=== PATIENT | female | born 1995 | race Caucasian/White ===

== ENCOUNTER 2018-08-02 08:37 | Emergency (ER) | payer MEDICAID, OTHER ==
[2018-08-02 09:04] VITALS: BP 116/70
--- NOTE | 2018-08-02 09:51 | UC ---
Headache HPI - HPI Summary HPI Summary: Patient presents to urgent care reporting 4 days of right-sided headache. Patient states is mostly frontal. Pressure is worse when she leaning forward. No nausea vomiting. Patient states that she changes position too quickly she feels dizzy but otherwise is fine. Patient has taken Tylenol 3 doses with little improvement. No fevers or chills. Patient denies any ear pain. Mild nasal congestion. No vision changes. States feels pressure behind right eye. No postnasal drip. Patient with decreased appetite. Patient without any documented fevers or chills. Patient states she gets a history of headaches and usually Tylenol helps but this has lasted longer. Patient does not have any allergies. Patient states her mother has frequent migraines. Patient's medications reviewed this visit. Patient states she is not . - History Of Current Complaint Chief Complaint: UCHeadache Stated Complaint: HEADACHE x4 DAYS, BILAT EYE CONCERN Time Seen by Provider: 08/02/18 09:50 Hx Obtained From: Patient Hx Last Menstrual Period: 06/2018 Pain Intensity: 5 - Allergies/Home Medications Allergies/Adverse Reactions: Allergies Allergy/AdvReac Type Severity Reaction Status Date / Time amoxicillin Allergy Severe Hives Verified 08/02/18 08:56 cefdinir [From Omnicef] Allergy Hives Verified 08/02/18 08:56 doxycycline Allergy Hives Verified 08/02/18 08:56 Home Medications: Home Medications Norelgest/Ethinyl Estr 150/35 [Xulane 150/35 PATCH] 1 dis TD WEEKLY 08/02/18 [ History Confirmed 08/02/18] PMH/Surg Hx/FS Hx/Imm Hx Previously Healthy: Yes Psychological History: Other - frequent PITT - Surgical History Surgical History: None - Family History Known Family History: Positive: Other - mom with migraines - Social History Occupation: Employed Full-time Lives: With Family Alcohol Use: Occasionally Substance Use Type: None Smoking Status (MU): Light Every Day Tobacco Smoker Type: Cigarettes Amount Used/How Often: 5-6 cigarettes daily Review of Systems All Other Systems Reviewed And Are Negative: Yes Constitutional: Positive: Fatigue Skin: Positive: Negative Eyes: Positive: Negative Physical Exam - Summary Physical Exam Summary: Vital Signs Reviewed: Yes A+Ox3, no distress Eyes: Conjunctiva Clear, ELLIE. EOM intact and full, no photophobia, no nystagmus ENT: Hearing grossly normal TM x 2 clear, + TTP right frintal area. Discomfort increases with leaning forward, turbinates mild inflammed, No PND, mmoist, uvula midline, no exudate, no erythema, no TMJ pain Neck: Positive: Supple Respiratory: Positive: No respiratory distress, No accessory muscle use + CTA throughout no w/r, Cardiovascular: RRR nl s1, s2 no m/r CBT <2 sec, no temporal artery pain abd soft + BS nt/nd no guarding, no distension Musculoskeletal Exam: FLETCHER x 4 without difficulty Strength Intact, ROM Intact Neurological: Positive: Alert, + sensation throughout Psychological: Positive: Normal Response To Family Skin: Positive: no rash, no ecchymosis Triage Information Reviewed: Yes Vital Signs: Initial Vital Signs Temp 97.2 F 08/02/18 08:57 Pulse 74 08/02/18 08:57 Resp 15 08/02/18 08:57 BP 116/70 08/02/18 08:57 Pulse Ox 100 08/02/18 08:57 Headache Course/Dx - Course Course Of Treatment: Patient presents to urgent care reporting 4 days of throat ongoing right frontal area pain. Patient states it's worse when he swallowed. Patient denies fevers or chills but states she has fatigue. Patient has taken Tylenol which hasn't helped. No vision changes nausea feeling is pressure behind her eye. No nausea vomiting. No fevers, chills, rash. Vital signs are stable, exam patient with tenderness over right frontal area. Worse when she leans forward. Patient with some mild sinus congestion. No temporal pain for intracranial process. Stated likely related to sinusitis. Recommend patient start taking a decongestant as well as Flonase. We'll start antibiotics. Secretion precautions. Strict return precautions. Patient comfortable in agreement with plan. - Differential Dx/Diagnosis Provider Diagnosis: Frontal headache, Sinusitis Discharge - Sign-Out/Discharge Documenting (check all that apply): Patient Departure All imaging exams completed and their final reports reviewed: No Studies - Discharge Plan Condition: Stable Disposition: HOME Prescriptions: Azithromycin 500 mg PO DAILY #7 tab Fluticasone NASAL SPRAY 50MCG* [Flonase NASAL SPRAY 50MCG*] 2 spray BOTH NARES DAILY #1 btl Loratadine 10 mg PO DAILY #30 capsule Patient Education Materials: Sinusitis (ED), General Headache (ED) Forms: *Work Release Referrals: Amy Dubon [Primary Care Provider] - Additional Instructions: - Stay well hydrated. Drink plenty of non-alcoholic, non-caffinated beverages. - Alternate ibuprofen (Advil, Motrin) 600mg and Tylenol every 3 hours for pain or fever. Take with food. Do NOT take for more than 4-5 days. - These infections are spread by secretions - do NOT share eating or drinking utensils - clean items you share with other people such as cell phones, computer mouse, TV remote, computer tablets,etc. Once you have been on antibiotics for 2 days, change your toothbrush and your pillowcase. - get plenty of restful sleep - It is recommended you take nasal spray, allergy medication, and antibiotics as prescribed - humidify the air in the room where you sleep - boil water, run a hot steam shower, vaporizer, cups of water by heat register - okay to take over the counter decongestant and cough medication - contact your doctor to schedule a follow-up appointment. if you develop increased headache, vomiting, vision changes of any other concerns - it is recommended you go to the emergency department for further evaluation and treatment - Billing Disposition and Condition Condition: STABLE Disposition: Home
== END 2018-08-02 10:13 | disposition home or self-care (01) ==
LOC: UCCORT 08:37
DX: J32.9 Chronic sinusitis, unspecified (principal); R51 Headache; F17.210 Nicotine dependence, cigarettes, uncomplicated; Z88.0 Allergy status to penicillin; Z88.1 Allergy status to other antibiotic agents
CPT/HCPCS: 99212; G0463

== ENCOUNTER 2018-09-21 13:42 | Emergency (ER) | payer OTHER ==
[2018-09-21 14:00] VITALS: BP 106/64
[2018-09-21] MEDS ORDERED: Ibuprofen TAB* 400 MG PO ONE (14:25)
--- NOTE | 2018-09-21 14:25 | UC ---
Shoulder Pain HPI - HPI Summary HPI Summary: 23 y/o female presents to the urgent care c/o RT shoulder pain s/p fall on Thursday night 09/19/2018. Pt reports she was running outside, when she fell on top of her Rt shoulder. She continue playing, then she applied ice. Pain has progressively worsen since how it it very painful to raise her arm. Pain w/ movement is 9/10 and at rest 4/10. She has taken Ibuprofen PO 800mg to alleviate symptoms. Pt states this morning, she experience mild tingling sensation over her Rt fingers. Pt denies SOB, chest pain, abdominal pain, N/V/ D. LMP: 08/31/2018 w/ regular menstrual cycles. Pt declines test. - History of Current Complaint Chief Complaint: UCGeneralIllness Stated Complaint: SP FALL,RT SHOULDER PAIN Time Seen by Provider: 09/21/18 14:14 Hx Obtained From: Patient Hx Last Menstrual Period: 08/31/18 ?: No - Pt declined Onset/Duration: Sudden Onset, Lasting Days - 2 days, Still Present, Worse Since - this morning Timing: Constant Severity Initially: Moderate Severity Currently: Moderate Location Of Pain: Is Discrete @ - RT shoulder Pain Intensity: 9 - w/ movement and 4/10 at rest Pain Scale Used: 0-10 Numeric Character: Sharp Aggravating Factor(s): Lifting, Extension, Abduction Alleviating Factor(s): Rest, Ice, OTC Meds - Ibuprofen Associated Signs And Symptoms: Positive: Numbness/Tingling - tingling sensation over the finger. Negative: Swelling, Redness, Bruising Related History: Dominant Hand Right - Risk Factors Non-Orthopedic Risk Factor: Negative DVT Risk Factors: Negative Septic Arthritis Risk Factor: Negative - Allergies/Home Medications Allergies/Adverse Reactions: Allergies Allergy/AdvReac Type Severity Reaction Status Date / Time amoxicillin Allergy Severe Hives Verified 09/21/18 14:00 cefdinir [From Omnicef] Allergy Hives Verified 09/21/18 14:00 doxycycline Allergy Hives Verified 09/21/18 14:00 PMH/Surg Hx/FS Hx/Imm Hx Previously Healthy: Yes - Pt denies PMHX - Surgical History Surgical History: None - Family History Known Family History: Positive: Diabetes, Other - mom with migraines - Social History Occupation: Employed Full-time Lives: With Family Alcohol Use: Occasionally Substance Use Type: Marijuana Smoking Status (MU): Light Every Day Tobacco Smoker Type: Cigarettes Amount Used/How Often: 7 cigarettes daily - Immunization History Vaccination Up to Date: Yes Review of Systems All Other Systems Reviewed And Are Negative: Yes Constitutional: Positive: Negative Skin: Positive: Negative Eyes: Positive: Negative ENT: Positive: Negative Respiratory: Positive: Negative Cardiovascular: Positive: Negative Gastrointestinal: Positive: Negative Genitourinary: Positive: Negative Motor: Positive: Negative Neurovascular: Positive: Negative Musculoskeletal: Positive: Decreased ROM - RT shoulder, Other: - RT shoulder pain s/p fall Neurological: Positive: Negative Psychological: Positive: Negative Is Patient Immunocompromised?: No Physical Exam - Summary Physical Exam Summary: Vital Signs Reviewed: Yes GENERAL: Well-Appearing, No Pain Distress, Well-Nourished - female w/o any apparent pain distress Eyes: Positive: Conjunctiva Clear - PERRL,EOMI ENT: Positive: Normal ENT inspection, Hearing grossly normal, Pharyngeal erythema - mild, Nasal drainage - clear, Uvula midline Neck: Positive: Supple, Nontender, No Lymphadenopathy Respiratory: Positive: Chest non-tender, Lungs clear, Normal breath sounds, No respiratory distress Cardiovascular: Positive: RRR, No Murmur, Pulses Normal, Brisk Capillary Refill Abdomen Description: Positive: Nontender, No Organomegaly, Soft. Negative: CVA Tenderness (R), CVA Tenderness (L) Bowel Sounds: Positive: Present Musculoskeletal: LF shoulder: The L shoulder is with/without obvious asymmetry or deformity when compared to the R shoulder. posterior shoulder w/ ecchymosis and bruising, no crepitus. No bony deformity or prominence of humeral head. No erythema, warmth. No Point Tenderness to palpation over the clavicle, or scapula. positive tenderness over Acromioclavicular joint and humeral head with mild swelling, NT to palpation of the bicipital groove . NT to palpation of the muscles of the sternocleidomastoid, pectoralis, biceps/triceps , deltoid, trapezius, . Limited ROM due to pain especially in adduction and abduction.on both passive and active, internal/external rotation, flexion/ extension. "empty can and drop arm test unable to perform due to pain. No axillary tenderness or lymphadenopathy. Normal sensation over the deltoid and fingers. Distal motor and neurovascular status is intact. Neurological Exam: Normal Psychological Exam: Normal Skin Exam: Normal Triage Information Reviewed: Yes Vital Signs: Initial Vital Signs Temp 98.6 F 09/21/18 13:54 Pulse 86 09/21/18 13:54 Resp 16 09/21/18 13:54 BP 106/64 09/21/18 13:54 Pulse Ox 99 09/21/18 13:54 Shoulder Course/Dx - Course Course Of Treatment: 23 y/o female presents to the urgent care c/o RT shoulder pain s/p fall on Thursday night 09/19/2018. Pt reports she was running outside, when she fell on top of her Rt shoulder. She continue playing, then she applied ice. Pain has progressively worsen since how it it very painful to raise her arm. Pain w/ movement is 9/10 and at rest 4/10. She has taken Ibuprofen PO 800mg to alleviate symptoms. Pt states this morning, she experience mild tingling sensation over her Rt fingers. Pt denies SOB, chest pain, abdominal pain, N/V/ D. LMP: 08/31/2018 w/ regular menstrual cycles. Pt declines test. Hx obtained. LF shoulder X-ray ordered: Impression: Soft tissue calcification over the humeral head observed, suggestive of calcific tendinopathy. No acute osseous injury observed. Pt's Rx Naproxen PO and Prednisone PO taper dose to alleviate symptoms. Shoulder immobilized with a shoulder sling for 2-3 days. Advised to f/u with PT referral for further evaluation and Orthopedic referral if not improvement of symptoms.D/c instructions explained. Pt understood and agreed w/ plan of care. - Differential Dx/Diagnosis Differential Diagnosis/HQI/PQRI: AC Separation, Contusion, Dislocation, Fracture (Closed), Rotator Cuff Injury, Sprain, Strain, Tendonitis Provider Diagnosis: Right shoulder injury, Sprain of right shoulder Discharge - Sign-Out/Discharge Documenting (check all that apply): Patient Departure - D/C home All imaging exams completed and their final reports reviewed: Yes - Discharge Plan Condition: Stable Disposition: HOME Prescriptions: Ibuprofen TAB* [Motrin TAB* 600 MG] 600 mg PO Q6H PRN #30 tab PRN Reason: Pain Patient Education Materials: Shoulder Sprain (ED) Forms: *Work Release Referrals: Amy Dubon [Primary Care Provider] - 3 Days [facility] [Provider Group] - 2 Days Additional Instructions: 1-Please continue taken Ibuprofen PO 600mg q6-8hrs after meals as directed to alleviate pain and swelling. 2-Please apply ice, keep your shoulder immobilized with the shoulder sling for 3-4 days and then resume movement slowly 3- Please f/u with Orthopedic DR from Sports Medicine in 2-3 days for further evaluation and treatment on your symptoms. - Billing Disposition and Condition Condition: STABLE Disposition: Home
== END 2018-09-21 16:02 | disposition home or self-care (01) ==
LOC: UCCORT 13:42
DX: S43.401A Unspecified sprain of right shoulder joint, initial encounter (principal); W19.XXXA Unspecified fall, initial encounter; Y93.02 Activity, running; Y92.9 Unspecified place or not applicable; F17.210 Nicotine dependence, cigarettes, uncomplicated
CPT/HCPCS: 99213; A9270-GY; G0463